=== PATIENT | female | born 1955 | race Caucasian/White ===

== ENCOUNTER → 2017-01-13 | Day surgery (SDC) | payer BC ==
[~2017-01-13] VITALS: Ht 167.6 cm; Wt 54.7 kg
[~2017-01-13] MED LIST: AMBIEN5 MG PO; CYMBALTA60 MG PO; ENTOCORT 3 MG3 MG PO; K-TAB 10MEQ10 MEQ PO; NEURONTIN300 MG PO; NEXIUM40 MG PO; OMEGA 3 500 SO1 EACH PO; PEPCID20 MG PO; PREVALITE PACKET4 GM PO; VITAMIN B-121000 MCG PO
== END | disposition disaster alternative care site (69) ==
LOC: GPOC 01-10 09:00 → GEND 09:12 → GPOC 09:30
PROC: 0DB98ZX Excision of Duodenum, Via Natural or Artificial Opening Endoscopic, Diagnostic (ICD-10-PCS; principal; 2017-01-13)
PROC: 0DBE8ZX Excision of Large Intestine, Via Natural or Artificial Opening Endoscopic, Diagnostic (ICD-10-PCS; 2017-01-13)
DX: K29.70 Gastritis, unspecified, without bleeding (principal); K31.89 Other diseases of stomach and duodenum; K64.8 Other hemorrhoids; R19.7 Diarrhea, unspecified; Z80.0 Family history of malignant neoplasm of digestive organs
CPT/HCPCS: J7030